=== PATIENT | female | born 1955 | race Caucasian/White ===

== ENCOUNTER 2019-05-11 08:02 | Emergency (ER) | payer OTHER, SELFPAY ==
--- NOTE | 2019-05-11 08:08 | ED.GENADULT ---
HPI - General Adult General Chief complaint: Upper Respiratory Infection Stated complaint: Left ear problems/sinus Time Seen by Provider: 05/11/19 08:24 Source: patient Mode of arrival: ambulatory Limitations: no limitations History of Present Illness HPI narrative: 64-year-old female patient presents to the [facility] with complaints of possible sinus infection. Patient states that couple weeks girl she heard some popping to her left ear. Patient states that she did not think anything of it. Patient states that she has had history of a ruptured eardrum to the left ear before. Patient denies any pain to the left ear today. Patient states that she is also had a little bit of pressure to around her teeth area at times and noticed that there was a little sore on the right inner cheek. Patient states that she is also noted some drainage to the back of her throat that she has been doing some warm salt water gargles for. Patient these symptoms started about 2 days ago. 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 Related Data Home Medications Medication Instructions Recorded Confirmed levothyroxine [Synthroid] 100 mcg PO DAILY 05/11/19 05/11/19 Allergies Allergy/AdvReac Type Severity Reaction Status Date / Time ciprofloxacin Allergy Unknown PSUEDOMEMBRANOUS Verified 10/22/15 13:37 COLITIS Review of Systems Review of Systems: Narrative: CONSTITUTIONAL: Denies fever, chills, or sweats. EYES: Denies visual changes, redness, or discharge. ENT: Positive rhinorrhea, denies congestion, sore throat, or otalgia. Positive drainage to the back of throat. Positive sore to the right side of the mouth CARDIOVASCULAR: Denies chest pain, palpitations, or edema. RESPIRATORY: Denies cough or dyspnea. GASTROINTESTINAL: Denies abdominal pain, nausea, vomiting, or diarrhea. GENITOURINARY: Denies dysuria or hematuria. SKIN: Denies rash or itching. MUSCULOSKELETAL: Denies back pain, joint pain, or myalgia. NEUROLOGIC: Denies headache, numbness, or weakness. PSYCHIATRIC: Denies anxiety or depression. PMFSH Comments At the time of my signature I agree with nursing past medical history, surgical, social, and family history. There is no relevant family history pertinent to the presenting complaint. Exam Narrative: Exam Narrative: GENERAL: Well-appearing, well-nourished, and in no acute distress. HEAD: Normocephalic, atraumatic. No tenderness noted to frontal and maxillary sinuses on palpation EYES: PERRLA and EOMI. ENT: Nares clear, no rhinorrhea or epistaxis. Mucous membranes moist. There is what appears to be a small little sore to the right inner cheek area where it appears patient might have bitten the inside of her mouth. There is no evidence of infection. No drainage. Very slightly tender on palpation. No swelling noted to the gums or teeth area. No obvious evidence of an abscess. Posterior pharynx with slight postnasal drip but no tonsil enlargement, no exudates or lesions present. Bilateral TMs are clear. There is a little bit of fluid noted to the right TM. NECK: Supple. No lymphadenopathy CHEST: Clear to auscultation. No respiratory distress. HEART: Regular rate and rhythm. murmur heard. Normal peripheral pulses. ABDOMEN: Soft, nontender, nondistended, normal active bowel sounds. EXTREMITIES: Normal range of motion. No edema. SKIN: Warm, dry, no rash. NEURO: No focal deficits. Alert and oriented x3. Course Vital Signs Vital signs: Vital Signs Temperature 36.9 C 05/11/19 08:18 Pulse Rate 102 H 05/11/19 08:18 Respiratory Rate 16 05/11/19 08:18 Blood Pressure 144/84 H 05/11/19 08:18 Pulse Oximetry 99 05/11/19 08:18 Temperature 36.9 C 05/11/19 08:18 Pulse Rate 102 H 05/11/19 08:18 Respiratory Rate 16 05/11/19 08:18 Blood Pressure 144/84 H 05/11/19 08:18 P
[2019-05-11 08:18] VITALS: BP 144/84; PULSE 102; RESP 16; TEMP 36.9; O2SAT 99
== END 2019-05-11 08:35 | disposition home or self-care (01) ==
PROVIDERS: Emergency Provider Nurse Practitioner Family
DX: H93.8X1 Other specified disorders of right ear (principal); R09.82 Postnasal drip; K12.0 Recurrent oral aphthae; E03.9 Hypothyroidism, unspecified
CPT/HCPCS: 99211; G0463

== ENCOUNTER 2020-06-06 09:01 | Emergency (ER) | payer OTHER, SELFPAY ==
--- NOTE | 2020-06-06 09:15 | ED.FEMALEGU ---
HPI - Female Genitourinary General Chief complaint: Urogenital-Female Stated complaint: uti Time Seen by Provider: 06/06/20 09:35 Source: patient and RN notes reviewed Mode of arrival: ambulatory Limitations: no limitations History of Present Illness HPI Narrative: 65-year-old female presents with concern for 1 week history of urinary urgency, frequency. Reports foul odor in her urine this morning. Reports a history of kidney stones, however reports she has not had any flank pain, nausea, vomiting, severe pain. Reports some mild suprapubic discomfort. Denies any lyko-bjo-imelumm intervention. MD elicited complaint: UTI Related Data Home Medications Medication Instructions Recorded Confirmed levothyroxine [Synthroid] 100 mcg PO DAILY 05/11/19 06/06/20 aspirin [Aspir-81] 81 mg PO EVERY OTHER DAY 06/06/20 06/06/20 [id number]-FA-vit K 1 tablet PO DAILY 06/06/20 06/06/20 [Adults Multivitamin] omega-3 fatty acids [Fish Oil] 1,000 mg PO DAILY 06/06/20 06/06/20 Allergies Allergy/AdvReac Type Severity Reaction Status Date / Time ciprofloxacin Allergy Unknown PSUEDOMEMBRANOUS Verified 06/06/20 09:22 COLITIS Review of Systems Review of Systems: Narrative: CONSTITUTIONAL: Denies malaise, chills, sweats, or fever. CARDIOVASCULAR: Denies chest pain, palpitations, or edema. RESPIRATORY: Denies cough or dyspnea. GASTROINTESTINAL: Denies abdominal pain, nausea, vomiting, diarrhea, bloody, or mucous stools. GENITOURINARY: Denies dysuria or hematuria. Reports urine urgency, frequency, suprapubic pressure and discomfort. SKIN: Denies rash or itching. MUSCULOSKELETAL: Denies back pain, joint pain, or myalgia. All systems reviewed & are unremarkable except as noted in HPI and below PMFSH Social History Social History Gender identity (if verbalized by the patient): Female Comments At time of signature, agree with nursing past medical, surgical, social and family history. There is no relevant family history pertinent to the presenting complaint Exam Narrative: Exam Narrative: GENERAL: Well-appearing, well-nourished, and in no acute distress. HEAD: Normocephalic. EYES: PERRLA, conjunctivae clear. NECK: Supple. No lymphadenopathy CHEST: Clear to auscultation. No respiratory distress. HEART: Regular rate and rhythm. ABDOMEN: Soft, nontender upon palpation, nondistended, normal active bowel sounds, no palpable or pulsatile masses, no guarding. No CVA tenderness SKIN: Warm, dry, no rash. NEURO: Alert and oriented x3. PSYCH: Normal mood and affect Course Course Emergency Course: Patient is aware of diagnosis, understands and agrees to treatment plan. Anticipatory guidance given. Patient agrees to follow-up as directed and is aware of reasons to seek care at the emergency department. Portions of this record may have been created with voice recognition software Vital Signs Vital signs: Vital Signs Temperature 98.7 F 06/06/20 09:30 Pulse Rate 93 06/06/20 09:30 Respiratory Rate 16 06/06/20 09:30 Blood Pressure 150/94 H 06/06/20 09:30 Pulse Oximetry 100 06/06/20 09:30 Temperature 98.7 F 06/06/20 09:30 Pulse Rate 93 06/06/20 09:30 Respiratory Rate 16 06/06/20 09:30 Blood Pressure 150/94 H 06/06/20 09:30 Pulse Oximetry 100 06/06/20 09:30 Reviewed. MDM - Female Genitourinary MDM Narrative Medical decision making narrative: Exam findings and UA show no acute concerns or changes; patient is non-toxic appearing and is in no distress. Patient is appropriate for outpatient treatment and follow-up. Lab Data Labs: Urine Glucose Negative Reference Range: Negative Urine Bilirubin Negative Reference Range: Negative Urine Ketone Trace Ref
[2020-06-06 09:30] VITALS: BP 150/94; PULSE 93; RESP 16; TEMP 37.1; O2SAT 100
== END 2020-06-06 09:46 | disposition home or self-care (01) ==
PROVIDERS: Emergency Provider Nurse Practitioner
DX: N39.0 Urinary tract infection, site not specified (principal); Z79.82 Long term (current) use of aspirin
CPT/HCPCS: 81003; 87086; 99213; G0463

== ENCOUNTER 2021-05-05 12:46 | Emergency (ER) | payer OTHER, BC, SELFPAY ==
[2021-05-05 12:59] VITALS: BP 135/98; PULSE 68; RESP 16; TEMP 36.8; O2SAT 100
--- NOTE | 2021-05-05 13:19 | ED.FEMALEGU ---
HPI - Female Genitourinary General Chief complaint: Urogenital-Female Stated complaint: UTI Time Seen by Provider: 05/05/21 13:19 Source: patient, RN notes reviewed and old records reviewed Mode of arrival: ambulatory Limitations: no limitations History of Present Illness HPI Narrative: 66-year-old female presents to the [facility] with concerns for a UTI. Denies any vaginal discharge. States she has had frequency and some urgency. Has a history also of kidney stones. Has been taking cranberry tablets MD elicited complaint: UTI Related Data Home Medications Medication Instructions Recorded Confirmed levothyroxine [Synthroid] 100 mcg PO DAILY 05/11/19 06/06/20 aspirin [Aspir-81] 81 mg PO EVERY OTHER DAY 06/06/20 06/06/20 [id number]-[id number]-FA-vit K 1 tablet PO DAILY 06/06/20 06/06/20 [Adults Multivitamin] omega-3 fatty acids [Fish Oil] 1,000 mg PO DAILY 06/06/20 06/06/20 Allergies Allergy/AdvReac Type Severity Reaction Status Date / Time ciprofloxacin Allergy Unknown PSUEDOMEMBRANOUS Verified 05/05/21 13:04 COLITIS Review of Systems Review of Systems: All systems reviewed & are unremarkable except as noted in HPI and below Constitutional: Constitutional: Reports no additional constitutional complaints, Denies chills and Denies fatigue Eyes: Eyes: Reports no additional eye complaints ENT: Reports system reviewed and no additional complaints, except as documented Cardiovascular: Cardiovascular: Reports no additional cardiovascular complaints Respiratory: Respiratory: Reports no additional respiratory complaints Gastrointestinal: Gastrointestinal: Reports no additional gastrointestinal complaints, Denies abdominal pain, Denies diarrhea, Denies nausea and Denies vomiting Genitourinary: Genitourinary: Reports as per HPI, Reports hematuria, Reports nocturia, Reports dysuria, Denies pelvic pain, Denies flank pain, Denies urinary incontinence and Denies vaginal discharge Musculoskeletal: Musculoskeletal: Reports no additional musculoskeletal complaints and Denies back pain Integumentary/Breasts: Skin/Breast: Reports system reviewed and no additional complaints, except as docu Neurologic: Reports system reviewed and no additional complaints, except as documented Psychiatric: Psychiatric: Reports no additional psychiatric complaints Endocrine: Endocrine: Denies fatigue Allergic/Immunologic: Allergic/Immunologic: Reports no additional allergic/immunologic complaints PMFSH Social History Social History Gender identity (if verbalized by the patient): Female Comments At the time of my signature, I reviewed and agree with the nursing past medical, surgical, social, and family history. There is no relevant family history pertinent to the patient complaint. Exam Const: General: healthy appearing, no acute distress and alert Nutritional Appearance: well nourished Orientation/consciousness: patient oriented x3 Limitations: no limitations HENMT: Head: normal to inspection Ears: external ears normal Eyes: Conjunctivae: conjunctivae normal Pupils: Equal, round and reactive pupils present Neck: Neck: normal visual inspection, no lymphadenopathy and no meningeal signs Chest: Chest palpation & inspection: normal inspection of the chest and abnormal inspection of the chest Resp: Effort & Inspection: normal respiratory effort Auscultation: clear to auscultation bilaterally Cardio: Rate: regular rate Rhythm: regular rhythm GI: GI Palp: Yes Soft to palpation and No Tenderness to palpation present (GI) : General: Yes no CVA tenderness Back/Spine/Pelvis: Back: no CVA tenderness Skin: General skin exam: normal color Rashes: no rashes Wounds: no wounds Neuro: General: patient oriented x3, moves all extremities, no meningeal signs and no focal motor deficits Cranial nerves: Yes Equal, round and reactive pupils present Speech: normal speech Gai
== END 2021-05-05 13:46 | disposition home or self-care (01) ==
PROVIDERS: Emergency Provider Nurse Practitioner
DX: R30.0 Dysuria (principal); E03.9 Hypothyroidism, unspecified
CPT/HCPCS: 81003; 87077; 87086; 87186; 99213; G0463

== ENCOUNTER 2024-01-21 14:30 | Emergency (ER) | payer MEDICARE, SELFPAY ==
--- NOTE | 2024-01-21 14:34 | ED_ITS ---
HPI - Female Genitourinary General Chief complaint: Urogenital-Female Stated complaint: urinary issue Time Seen by Provider: 01/21/24 14:33 Source: patient Mode of arrival: ambulatory Limitations: no limitations History of Present Illness HPI Narrative: Marina is a 68-year-old female patient presenting to the clinic today with complaints of possible UTI. She received reporting burning, frequency, and urgency with urination. She does have some pain to the left lower back. Pain is been going on for the last 2-3 days. She denies any fever, chills, or body aches. Does report some malodorous urine. Patient also has a history kidney stones. Does not feel as though she is passing a kidney stone currently. Related Data Home Medications Medication Instructions Recorded Confirmed levothyroxine 100 mcg tablet 100 mcg PO DAILY 05/11/19 01/21/24 (Synthroid) aspirin 81 mg tablet,delayed 81 mg PO EVERY OTHER DAY 06/06/20 01/21/24 release multivit with minerals-iron 18 1 tablet PO DAILY 06/06/20 01/21/24 mg-folic ac 400 mcg-vit K 25 mcg tablet (Adults Multivitamin) omega-3 fatty acids 1,000 mg PO DAILY 06/06/20 01/21/24 amlodipine 10 mg tablet 10 mg PO DAILY 01/21/24 01/21/24 carvedilol 12.5 mg tablet 12.5 mg PO DAILY 01/21/24 01/21/24 losartan 25 mg tablet 25 mg PO DAILY 01/21/24 01/21/24 rosuvastatin 10 mg tablet 10 mg PO DAILY 01/21/24 01/21/24 Allergies Allergy/AdvReac Type Severity Reaction Status Date / Time ciprofloxacin Allergy Unknown PSUEDOMEMBRANOUS Verified 01/21/24 14:31 COLITIS Review of Systems Review of Systems: Pertinent positives per HPI. Patient denies any fever, chills, rash, headache, visual changes, dizziness, cough, runny nose, sore throat, shortness of breath, chest pain, palpitations, nausea, vomiting, diarrhea, constipation, abdominal pain. [facility] Social History Social History Gender identity (if verbalized by the patient): Female Comments At the time of my signature, I reviewed and agree with the nursing past medical, surgical, social, and family history. There is no relevant family history pertinent to the patient complaint. Exam Narrative: General: Well-developed, well nourished, in no apparent distress. Head: Normocephalic, atraumatic. Cardio: Regular rate and rhythm, s1 and s2 normal, no murmur appreciated. Resp: Clear to auscultation bilaterally, no rhonchi, rales, wheezing or rubs. Abdomen: Soft, pliable, bowel sounds present in all quadrants, non-tender to palpation, no organomegly, no CVAT tenderness. Course Course Emergency Course: Portions of this record may have been created with voice recognition software. Level of Care: Express Care Visit Vital Signs Vital signs: Vital signs reviewed MDM - Female Genitourinary MDM Narrative Medical decision making narrative: At the time of visit patient is resting comfortably on the exam table. Patient appears to be nontoxic. Labs: Urinalysis shows leukocytes, blood, and ketones. We will send for culture. Plan: I suspect patient has UTI. Supportive measures were discussed with the patient and they voiced understanding discharge instructions and agrees to treatment plan. Return precautions reviewed Differential Diagnosis Differential diagnosis: Likely urinary tract infection, bacterial vaginosis, trichomoniasis, cervicitis, ovarian cyst, vaginitis, cyst of Bartholin's gland, cystitis, dysmenorrhea and other (Ureterolithiasis) Discharge Plan Discharge Clinical Impression: Urinary tract infection Qualifiers: Urinary tract infection type: acute cystitis Hematuria presence: with hematuria Qualified Code(s): N30.01 - Acute cystitis with hematuria Patient Disposition: Home, Self-Care Condition: Stable Instructions: Antibiotic Form, Urinary Tract Infection in Older Adults (ED) Additional Instructions: Urinalysis shows trace of leukocytes, blood, and ketone. We will send for culture. Take Bactrim as prescribed Increase fluids and stay well hydrated Wipe front to back. May use wet wipes. Avoid tub baths If sexually active- pee before and after intercourse. Wear cotton panties Avoid tight clothing up against the genitals Follow up with your PCP in 1 week if symptoms persist. If symptoms get worse recommend going to the emergency room to rule out kidney stone. Prescriptions: New sulfamethoxazole-trimethoprim [Bactrim DS] 800-160 mg tablet 1 tablet PO Q12H 7 Days Qty: 14 0RF No Action Fish Oil Capsule 1,000 mg PO DAILY Adults Multivitamin 18 mg iron-400 mcg-25 mcg Tablet 1 tablet PO DAILY aspirin [Aspir-81] 81 mg Tablet,Delayed Release (Dr/Ec) 81 mg PO EVERY OTHER DAY carvedilol 12.5 mg tablet 12.5 mg PO DAILY amlodipine 10 mg tablet 10 mg PO DAILY losartan 25 mg tablet 25 mg PO DAILY rosuvastatin 10 mg tablet 10 mg PO DAILY levothyroxine [Synthroid] 100 mcg Tablet 100 mcg PO DAILY Follow-up/Referrals: PHYSICIAN,AUTOMATIC SERGING MACHINE OPERATOR [Primary Care Provider] - Time of Disposition: 15:10 Quality NIHSS Nursing Documentation ED NIHSS nursing documentation: reviewed/agree
[2024-01-21 14:45] VITALS: BP 153/98; PULSE 60; RESP 14; TEMP 36.6; O2SAT 100
[2024-01-21 15:05] LABS: EDUAAPPEAR Clear; EDUABILI Negative (Negative); EDUABLOOD Trace (Negative); EDUACOLOR1 Light/Pale; EDUAGLUCOSE Negative (Negative); EDUAKETONE Trace (Negative); EDUALEUKO Trace (Negative); EDUANITRATE Negative (Negative); EDUAPROTEIN Negative (Negative); EDUASPGRAVITY 1.015; EDUAUROBILI 0.2
== END 2024-01-21 15:21 | disposition home or self-care (01) ==
PROVIDERS: Emergency Provider Nurse Practitioner Family
DX: N30.01 Acute cystitis with hematuria (principal)
CPT/HCPCS: 81003; 87086; 99213; G0463

== ENCOUNTER 2024-05-25 16:09 | Emergency (ER) | payer MEDICARE, SELFPAY ==
--- NOTE | 2024-05-25 16:15 | ED_ITS ---
HPI - Female Genitourinary General Chief complaint: Urogenital-Female Stated complaint: urinary irritation Time Seen by Provider: 05/25/24 16:32 Source: patient and RN notes reviewed Mode of arrival: ambulatory Limitations: no limitations History of Present Illness HPI Narrative: 69-year-old female presents with concern for urinary urgency and frequency that started 5 days ago. She denies abdominal pain. Denies fever, body aches, chills, sweats, nausea, vomiting. MD elicited complaint: UTI Related Data Home Medications ?Medication ?Instructions ?Recorded ?Confirmed ?Last Taken ?Type levothyroxine 100 mcg tablet 100 mcg PO DAILY 05/11/19 01/21/24 Unknown History (Synthroid) aspirin 81 mg tablet,delayed 81 mg PO EVERY OTHER DAY 06/06/20 01/21/24 Unknown History release multivit with minerals-iron 18 1 tablet PO DAILY 06/06/20 01/21/24 Unknown History mg-folic ac 400 mcg-vit K 25 mcg tablet (Adults Multivitamin) omega-3 fatty acids 1,000 mg PO DAILY 06/06/20 01/21/24 Unknown History amlodipine 10 mg tablet 10 mg PO DAILY 01/21/24 01/21/24 Unknown History carvedilol 12.5 mg tablet 12.5 mg PO DAILY 01/21/24 01/21/24 Unknown History losartan 25 mg tablet 25 mg PO DAILY 01/21/24 01/21/24 Unknown History rosuvastatin 10 mg tablet 10 mg PO DAILY 01/21/24 01/21/24 Unknown History Allergies Allergy/AdvReac Type Severity Reaction Status Date / Time ciprofloxacin Allergy Unknown PSUEDOMEMBRANOUS Verified 05/25/24 16:11 COLITIS Sulfa (Sulfonamide Allergy Unknown Unknown Verified 05/25/24 16:11 Antibiotics) Review of Systems Review of Systems: CONSTITUTIONAL: Denies malaise, chills, sweats, or fever. CARDIOVASCULAR: Denies chest pain, palpitations, or edema. RESPIRATORY: Denies cough or dyspnea. GASTROINTESTINAL: Denies abdominal pain, nausea, vomiting, diarrhea GENITOURINARY: Denies dysuria. Reports frequency, urgency, suprapubic pressure. Denies flank pain or hematuria. SKIN: Denies rash or itching. MUSCULOSKELETAL: Denies back pain or myalgia. All systems reviewed & are unremarkable except as noted in HPI and below PMFSH Social History Social History Gender identity (if verbalized by the patient): Female Comments At time of signature, agree with nursing past medical, surgical, social and family history. There is no relevant family history pertinent to the presenting complaint Exam Narrative: GENERAL: Well-appearing, well-nourished, and in no acute distress. HEAD: Normocephalic. EYES: PERRLA, conjunctivae clear. NECK: Supple. No lymphadenopathy CHEST: Clear to auscultation. No respiratory distress. HEART: Regular rate and rhythm. ABDOMEN: Soft, nontender upon palpation, nondistended, normal active bowel sounds, no palpable or pulsatile masses, no guarding. No CVA tenderness SKIN: Warm, dry, no rash. NEURO: Alert and oriented x3. PSYCH: Normal mood and affect Course Course Emergency Course: Patient is aware of diagnosis, understands and agrees to treatment plan. An ticipatory guidance given. Patient agrees to follow-up as directed and is aware of reasons to seek care at the emergency department. Portions of this record may have been created with voice recognition software Level of Care: Express Care Visit Vital Signs Vital signs: Reviewed. MDM - Female Genitourinary MDM Narrative Medical decision making narrative: Exam findings and UA show no acute concerns or changes; patient is non-toxic appearing and is in no distress. Patient is appropriate for outpatient treatment and follow-up. Differential Diagnosis Differential diagnosis: Likely urinary tract infection and cystitis Critical Care Time Critical Care Time Critical Care Time: No Discharge Plan Discharge Clinical Impression: Urinary urgency Patient Disposition: Home, Self-Care Condition: Stable Instructions: Urinary Urgency and Frequency (DC) Additional Instructions: We will send a urine culture to the lab; if the culture identifies an organism that requires antibiotic, you will receive a phone call from an urgent care staff member and an appropriate antibiotic will be prescribed. -Follow-up with your urology or primary care provider for further evaluation. Seek ER visit if condition worsens with high fever, nausea, vomiting and severe back pain. Patient Language: Setswana Prescriptions: No Action Fish Oil Capsule 1,000 mg PO DAILY Adults Multivitamin 18 mg iron-400 mcg-25 mcg Tablet 1 tablet PO DAILY aspirin [Aspir-81] 81 mg Tablet,Delayed Release (Dr/Ec) 81 mg PO EVERY OTHER DAY carvedilol 12.5 mg tablet 12.5 mg PO DAILY amlodipine 10 mg tablet 10 mg PO DAILY losartan 25 mg tablet 25 mg PO DAILY rosuvastatin 10 mg tablet 10 mg PO DAILY levothyroxine [Synthroid] 100 mcg Tablet 100 mcg PO DAILY Follow-up/Referrals: Otilio Saunders MD [Physician] - PHYSICIAN,COLLEGE TUTOR [Primary Care Provider] - Time of Disposition: 16:41
[2024-05-25 16:17] VITALS: BP 138/85; PULSE 77; RESP 16; TEMP 36.4; O2SAT 100
[2024-05-25 16:33] LABS: EDUAAPPEAR Clear; EDUABILI Negative (Negative); EDUABLOOD Trace (Negative); EDUACOLOR1 Yellow; EDUAGLUCOSE Negative (Negative); EDUAKETONE Negative (Negative); EDUALEUKO Trace (Negative); EDUANITRATE Negative (Negative); EDUAPH 6.5; EDUAPROTEIN Negative (Negative); EDUASPGRAVITY 1.025; EDUAUROBILI 0.2
== END 2024-05-25 16:45 | disposition home or self-care (01) ==
PROVIDERS: Emergency Provider Nurse Practitioner
DX: R39.15 Urgency of urination (principal); I10 Essential (primary) hypertension; E78.00 Pure hypercholesterolemia, unspecified; E03.9 Hypothyroidism, unspecified
CPT/HCPCS: 81003; 87086; 99213; G0463